=== PATIENT | female | born 2000 | race Caucasian/White ===

== ENCOUNTER 2023-10-02 14:31 | Outpatient (CLI) | payer BC, SELFPAY ==
--- OUTSIDE RECORDS SUMMARY | 2023-10-02 14:32 | XMS_ITS | Clinical Summary ---
Author Organization [facility] Address [place], [place] [address] Care Team Providers Care Medart Operator Name Role Phone Unavailable Primary Care Provider Unavailabl e Allergies Active Allergy Reactions Criticality Noted Date Comments Cats (Fur, Dander, Saliva) 1 Horse/Equine Containing Products Medications No known medications Active Problems No known active problems Resolved Problems Problem Noted Date Diagnosed Date Resolved Date Chronic pain of right ankle 10/05/2018 04/25/2020 Sprain of calcaneofibular li gament of right ankle 10/05/2018 04/25/2020 Right ankle instability 10/05/201804/16 Encounter for Hearing Examin ation Following Failed 01/05/2009 10/05/2018 Overview: School and 7y well-child check Encounters Date Type Department Care Team Description 07/17/2023 Orders Only [facility] Scanner 1 scan: (1-Ord) INCOMING RECORDS-PFT, [facility], 07/17/2023 from Last 3 Months Immunizations Name Administration Dates Next Due AMB Influenza, IIV3 (Age >=3 years) Preserve Free (Flu Clinic Only) 01/12/2013,01/24/2011 AMB Influenza, IIV3 (Age >=3 years)(Flu Clinic Only) 03/24/2008 AMB Influenza, IIV4 PF (=>6 mos Flulaval,Fluzone Fluarix)(Flu Clinic Only) 01/26/2016,12/29/2014 DTaP 10/27/2006, 3,04/28/2002,02/17,2001 HIB-HepB (Comvax) 02/23/2003, 3,02/17/2002,12/17 HPV 9 (Gardasil 9) 02/06/2015 Hepatitis A (Peds) 10/18/2013,11/13/2008 Human Papilloma Virus Vaccine 12/14/2013, 014 Inactivated Polio Vaccine 10/27/2006,01/2003,02/17/2002,12/17 Influenza A (H1N1), Inactivated 01/19/2009 Influenza, IIV3 (Age >=3 years) 02/04/2012,04/01 Influenza, IIV4 12/08/2018, 8,01/20/2017,12/14 Influenza, IIV4 (=>6mos) MDV 01/14/2020 MMR 10/27/2006,11/17/2002 Meningococcal B 12/08/2018,11/11/2017 Meningococcal Vaccine (Menveo) 11/11/2017,2013 Pneumococcal conj 7-Valent (Prevnar 7) 0 11/17/2002,04/28/2002,02/17/2002,12/17 Tdap 10/18/2013 Varicella Vaccine 11/13/2008,11/17/2002 Family History Medical History Relation Name Comments Anesthesia Problem Father heart sto pped wtih anesthesia Asthma Father Asthma Sister Clotting disorder No Family History Relation Name Status Comments Father Sister Social History Tobacco Use Types Packs/Day Years Used Date Smoking Tobacco: Never Smokeless Tobacco: Never Tobacco Cessation:Counseling Given: Yes Comments:no exposure Alcohol Use Standard Drinks/Week Comments Yes 0 (1 standard drink = 0.6 oz pur e alcohol) once per week PHQ-2 Answer Date Recorded PHQ-2 TOTAL SCORE 0 04/25/2020 Social Connections Answer Date Recorded Frequency of Communication with Friends and Fami ly Not on file 03/16/2021 Financial Resource Strain Answer Date R ecorded Difficulty of Paying Living Expenses Not on file 03/16/2021 Difficulty of Paying Living Expenses Not on file 03/16/2021 Sex and Gender Information Value Date Recorded Sex Assigned at Not on file Gender Identity Not on file Sexual Orientation Not on file Obstetrics History Para Term AB IAB SAB Ectopic Multiple Livin g Live Births 0 0 0 0 0 0 0 0 0 0 0 Last Filed Vital Signs Vital Sign Reading Time Taken Comments Blood Pressure 106/69 03/21/2021 10:28 AM [employer] Pulse 65 03/21/2021 10:28 AM [employer] Temperature 37.1 ??C (98.7 ??F) 02/24/2020 3:08 PM CS T Respiratory Rate 20 11/18/2006 9:16 AM CDT Oxygen Saturation 100% 03/21/2021 10:28 AM [employer] Inhaled Oxygen Concentration - - Weight 69.1 kg (152 lb 4.8 oz) 03/21/2021 10:28 AM [employer] Height 169.1 cm (5' 6.58) 03/21/2021 10:[address] Body Mass Index 24.16 03/21/2021 10:28 AM [employer] Plan of Treatment Health Maintenance Due Date Last Done Comments HIV for age 15-65 2016 Hepatitis C screening for age 18-79 10/18/2019 Depression screening for age 12+ 04/25/2021 04/25/2020, 02/24/2020, 12/08/2018, Additional history exists BMI (ht and wt on same day) for age 18+ 03/21/2022 03/21/2021, 09/19/2020, 04/25/2020, Additional history exists Pap test for age 21-65 2022 COVID-19 vaccine series ( season) 2022 Tetanus booster 10/19/2023 10/18/2013 Influenza for age 9-49 11/15/2023 0, 12/08/2018, 01/13/2018, Additional history exists Pneumococcal series for age 6-64 Aged Out 11/17/2002, 04/28/2002, 02/17/2002, Additional history exists No longer eligible based on patient's age to complete this topic Tdap Completed 10/18/2013 HPV series for age 9-26 Completed 02/07/20 15, 12/14/2013, 10/18/2013 Meningococcal series for age 11-21 Completed 11/11/2017, 10/18/2013 Procedures Procedure Name Priority Date/Time Associated Diagnosis Comments SCAN CORRESP-DIAGNOSTICS 07/17/2023 12:00 AM CDT from Last 3 Months Results * SCAN CORRESP-DIAGNOSTICS (07/17/2023 12:00 AM CDT) Scanner OTHER from Last 3 Months
[2023-10-05 10:01] LABS: HSV 1 Subtype by PCR Not Detected; HSV 2 Subtype by PCR Detected; Herpes Simplex Subtype Source Tissue
== END 2023-10-02 14:32 | disposition home or self-care (01) ==
LOC: NFLDUCREF 14:31
PROVIDERS: PCP Nurse Practitioner Family; Visit Provider Nurse Practitioner Family
DX: N89.8 Other specified noninflammatory disorders of vagina (principal)
CPT/HCPCS: 87529